=== PATIENT | female | born 1945 | race Caucasian/White ===

== ENCOUNTER 2016-06-22 15:36 | Emergency (ER) | payer MEDICARE ==
[~2016-06-22 15:36] MED LIST: ACULAR10 ML OP; ALBUTEROL HFA; ALBUTEROL17 GM INH; ALPRAZOLAM; ALPRAZOLAM ER1 MG PO; ALPRAZOLAM ODT1 MG PO; ALPRAZOLAM PO; ALPRAZOLAM0.5 MG; AMOXICILLIN875 MG; AMOXICILLIN875 MG PO; ANTIVERT PO; ASTELIN137 MCG INH; ATROVENT HFA12.9 GM INH; ATROVENT NASAL15 ML; AZELASTINE HCL INH; AZELASTINE137 MCG/0.; BACTRIM DS TABL1 TAB PO; BENAZEPRIL; BENAZEPRIL HCL10 M1 PO; BENAZEPRIL HCTZ PO; BENAZEPRIL PO; BENZONATATE PO; BUTRANS1 EAC1 TD; CALAN; CALCIUM + D 6001 TA1 PO; CALCIUM1 TAB.CHEW; CALCIUM500 MG PO; CALTRATE 600 +1 EACH; CALTRATE 600+D PO; CALTRATE PLUS T1 TA1 PO; CALTRATE PO; CARAFATE1 G PO; CIPRO PO; CLEOCIN PO; COMBIVENT INH14.7 GM; COMBIVENT U/D3 M2 INH; CRESTOR10 MG; CRESTOR10 MG PO; DELTASONE20 MG PO; DESYREL50 MG PO; DIAZEPAM PO; DILANTIN; DILANTIN KAPSE100 MG PO; DILANTIN PO; DOC-Q-LACE100 MG PO; ERYTHROMYC3.5 GM OPT OD; FAMOTIDINE; FEROSUL325 ( 651 PO; FERRO-TIME325 MG PO; FISH OIL 1,0001 CA2 PO; FISH OIL 10001000 MG PO; FISH OIL300 MG PO; FLAGYL PO; FLUOXETINE HCL25 GM; FLUOXETINE HCL40 M1 PO; FLUOXETINE HCL40 MG PO; FUROSEMIDE40 MG PO; FUROSEMIDE80 MG PO; GI COCKTAIL PO; GLUCOPHAGE850 MG PO; HCTZ; HCTZ PO; HEMOCYTE324 MG PO; HUMIBID-LA600 MG PO; HYDROCODON-ACE1 EAC5 PO; INDOCIN SR75 MG; INDOMETHACIN25 MG PO; INDOMETHACIN75 MG PO; IRON1 TAB; IRON1 TAB PO; IRON325 ( 65 ) PO; KCL; KCL PO; KLOR-CON 88 ME1 DOB; LASIX; LASIX PO; LASIX20 MG; LASIX80 MG PO; LEVAQUIN PO; LEVAQUIN750 MG PO; LEVSIN; LIDOCAINE; LIPITOR20 MG PO; LOPRESSOR PO; LORATADINE PO; LOTENSIN; LOTENSIN PO; LOTENSIN20 MG PO; LOTENSIN40 MG PO; LOVAZA1 G PO; MAALOX PO; MAALOX SUSPENS355 ML PO; MEDROL DOSEPAK4 MG PO; METFORMIN; METFORMIN HCL500 M1 PO; METFORMIN HYDRO25 GM; METOPROLOL SUCC25 MG PO; METOPROLOL TAR25 MG PO; MIRALAX17 GM; MIRALAX17 GM PO; MOBIC; MOBIC PO; MOBIC15 MG PO; MUCINEX DM1 TAB.SR . PO; NAPROSYN500 MG PO; NEURONTIN PO; NEURONTIN100 MG; NEXIUM PO; NEXIUM10 MG/PACK; NORCO 10-325 TA1 TAB PO; NORCO 10/325 TA1 TAB; OS CAL; OS CAL PO; OS-CAL 500+D CA1 TA1 PO; PERCOCET 10/3251 TAB PO; PERCOCET10 PO; PERCOCET5/325 PO; PHENERGAN PR; POLYTRIM EYE DR10 ML OP; PRAVASTATIN SOD40 MG PO; PREDNISONE PO; PREMARIN; PREMARIN PO; PREMARIN1.25 MG PO; PREVASTATIN; PREVASTATIN PO; PROZAC PO; PROZAC40 MG PO; PYRIDIUM PO; REMERON; REMERON PO; REMERON15 MG PO; TESSALON PERLE100 M1 PO; TESSALON PERLES PO; TOPROL XL PO; TRAVATAN5 ML; TRAZODONE; URECHOLINE25 MG PO; VENTOLIN INHALER INH; VOLTAREN75 MG PO; ZELNORM; ZELNORM PO; ZITHROMAX PO; ZOFRAN PO; ZOLOFT100 MG; [UNRECOGNIZED DRUG - OTHER] PO
== END 2016-06-22 16:14 | disposition home or self-care (01) ==
LOC: SED 15:36
DX: K02.9 Dental caries, unspecified (principal); D64.9 Anemia, unspecified; M19.90 Unspecified osteoarthritis, unspecified site; F41.9 Anxiety disorder, unspecified; Z88.5 Allergy status to narcotic agent; Z88.8 Allergy status to other drugs, medicaments and biological substances; Z79.899 Other long term (current) drug therapy
CPT/HCPCS: 99282

== ENCOUNTER 2016-07-24 13:16 | Emergency (ER) | payer MEDICARE ==
--- NOTE | ~2016-07-24 | CR133 ---
[facility] A Service of [facility] & [facility] RADIOLOGY TEXT RESULTS PATIENT: LARS GONSALES LOCATION: SED : 47 UNIT #: [id number] AGE: [address]: Jonn Marie MD SEX: F ORDER DR: [id number] [place] [id number] E MR#: [id number] Acc #: [id number] NAME: LARS GONSALES : 1945 SEX: F STUDY DATE/TIME: 07/24/2016 13:44 UNIT: SED ROOM: STUDY DESCRIPTION: CR Forearm 2 View Rt Attending Physician: Jonn Marie M.D. Ordering Physician: Jonn Marie M.D. Primary Care Physician: Oc Witt M.D. MEDICAL IMAGING REPORT This report is preliminary unless electronic signature is present. EXAM Right forearm, 2 views, 07/24/2016, 1344 hours. CLINICAL HISTORY 71-year-old man who tripped over a cord today falling on arm. Patient complaining of pain at the ulnar midshaft. COMPARISON None. FINDINGS AP and lateral views demonstrate no fracture or dislocation. There is posterior soft tissue prominence over the midshaft of the ulna which could represent edema or hematoma. No underlying bone abnormality. IMPRESSION 1. No fracture of the radius or ulna. 2. Posterior soft tissue swelling over the midshaft ulna likely representing edema or hematoma. Dictated by... Diana Funk M.D. THIS IS AN ELECTRONICALLY VERIFIED REPORT Diana Funk M.D. at 07/24/2016 5:11 PM GREGORIO/didi TD: 07/24/2016 15:17 JOB #: [id number] MEDICAL IMAGING REPORT Page 1 of 1
== END 2016-07-24 14:12 | disposition home or self-care (01) ==
LOC: SED 13:16
DX: S50.11XA Contusion of right forearm, initial encounter (principal); Z88.5 Allergy status to narcotic agent; Z88.8 Allergy status to other drugs, medicaments and biological substances; W01.0XXA Fall on same level from slipping, tripping and stumbling without subsequent striking against object, initial encounter; Y92.9 Unspecified place or not applicable
CPT/HCPCS: 73090; 99283

== ENCOUNTER 2016-08-16 19:53 | Emergency (ER) | payer MEDICARE ==
--- NOTE | ~2016-08-16 | CT2 ---
[facility] A Service of [facility] RADIOLOGY TEXT RESULTS PATIENT: LARS GONSALES LOCATION: SED : 47 UNIT #: [id number] AGE: [address]: Evaristo Qiu MD SEX: F ORDER DR: [id number] [place] [id number] E MR#: [id number] Acc #: [id number] NAME: LARS GONSALES : 1945 SEX: F STUDY DATE/TIME: 08/17/2016 UNIT: SED ROOM: STUDY DESCRIPTION: CT Abd and Pelv W Cont Attending Physician: Evaristo Qiu M.D. Ordering Physician: Evaristo Qiu M.D. Primary Care Physician: Oc Witt M.D. MEDICAL IMAGING REPORT This report is preliminary unless electronic signature is present. EXAM Abdomen and pelvis CT 08/17 at 01:14 INDICATIONS Generalized abdominal pain for 3 days with nausea, vomiting and diarrhea. TECHNIQUE Axial images were obtained through the abdomen and pelvis following oral and IV contrast administration. Multiplanar reformats were obtained. Comparison made with 04/24/2016. The CT exam was performed with one or more of the following radiation dose reduction techniques: automatic exposure control, adjustment of mA and/or kV according to patient size, and iterative reconstruction. FINDINGS Abdomen: Lung bases are clear. The heart is enlarged. The gallbladder surgically absent. Mild intra and extrahepatic biliary ductal dilatation is stable. Solid organs are normal. No free fluid or adenopathy is seen. There is diffuse colonic diverticulosis. No diverticulitis is identified. The small bowel is normal. Pelvis: There is extensive colonic diverticulosis. No discrete diverticulitis is seen. Distal small bowel remains normal. Urinary bladder is normal. Uterus is surgically absent. The patient may be status post repair of the midline ventral abdominal wall. Correlate with surgical history. 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 IMPRESSION 1. No clearly acute findings in the abdomen and pelvis. 2. Diffuse colonic diverticulosis without evidence of focal diverticulitis. The GI tract is otherwise normal. [facility] A Service of [facility] RADIOLOGY TEXT RESULTS PATIENT: LARS GONSALES LOCATION: [facility] : [birth year] UNIT #: [id number] AGE: [address]: Evaristo Qiu MD SEX: F ORDER DR: 3. Hysterectomy and cholecystectomy. 4. Stable mild intra and extrahepatic biliary ductal dilatation. Dictated by... Miguel Rothman Jr., M.D. THIS IS AN ELECTRONICALLY VERIFIED REPORT Miguel Rothman Jr., M.D. at 08/17/2016 9:24 PM DANE/lior TD: 08/17/2016 10:06 JOB #: [id number] MEDICAL IMAGING REPORT Page 1 of 1
[2016-08-16 22:24] LABS: URINE SOURCE CLEAN CATCH
[2016-08-16 22:25] LABS: BASOPHIL# 0.1 X10e3 (0-0.3); BASOPHIL% 0.9 % (0-2.5); EOSINOPHIL# 0.3 X10e3 (0-0.7); EOSINOPHIL% 4.2 % (0.0-7.0); HEMATOCRIT 31.1 % (35.0-45.0); HEMOGLOBIN 10.3 gm/dL (12.0-16.0); LYMPHOCYTE# 2.4 X10e3 (1.0-3.5); LYMPHOCYTE% 31.1 % (17.0-45.0); MEAN CORPUSCULAR HEMOGLOBIN 27.4 PG (28-34); MEAN PLATELET VOLUME 7.8 FL (6.5-11.5); MONOCYTE# 0.6 X10e3 (0-1.0); MONOCYTE% 7.2 % (3.0-12.0); NEUTROPHIL# 4.4 X10e3 (1.5-7.1); NEUTROPHIL% 56.6 % (40-75); PLATELET COUNT 245 X10e3 (140-420); RED BLOOD COUNT 3.75 X10e (3.90-5.30); RED CELL DISTRIBUTION WIDTH 14.8 % (11.0-15.5); WHITE BLOOD COUNT 7.7 X10e3 (4.0-10.5)
[2016-08-16 22:26] LABS: DIFF IND NO
[2016-08-16 22:27] LABS: URINE APPEARANCE CLEAR; URINE BILIRUBIN NEG (NEG); URINE BLOOD TRACE-INTACT (NEG); URINE COLOR YELLOW; URINE GLUCOSE NEG (NORM); URINE KETONE NEG (NEG); URINE LEUKOCYTE ESTERASE 1+ (NEG); URINE NITRATE NEG (NEG); URINE PROTEIN NEG (NEG); URINE SPECIFIC GRAVITY 1.015 (1.003-1.035); URINE UROBILINOGEN 0.2 MG/DL (NORM)
[2016-08-16 22:34] LABS: CULTURE INDICATED? YES; MICRO INDICATED? YES; URINE BACTERIA NEG (NEG); URINE SQUAMOUS EPITHELIAL CELL OCCAS /[HPF]; URINE TRANSITIONAL EPI CELLS OCCAS /[HPF]
[2016-08-16 22:46] LABS: BILIRUBIN, DIRECT 0.1 mg/dL (0.0-0.2); BILIRUBIN,TOTAL 0.1 mg/dL (0.2-2.0); BUN/CREATININE RATIO 38.75; CALCIUM SERUM 9.1 mg/dL (8.4-10.2); CREATININE SERUM 0.8 mg/dL (0.6-1.4); GLOM FILT RATE Estimated 74.8 mL/min (>60); PROTEIN TOTAL SERUM 7.3 g/dL (6.0-8.3)
== END 2016-08-17 02:23 | disposition home or self-care (01) ==
LOC: SED 19:53
PROVIDERS: Emergency Medicine
DX: R10.30 Lower abdominal pain, unspecified (principal); R19.7 Diarrhea, unspecified; R11.0 Nausea; I11.0 Hypertensive heart disease with heart failure; I50.9 Heart failure, unspecified; I25.10 Atherosclerotic heart disease of native coronary artery without angina pectoris; E11.9 Type 2 diabetes mellitus without complications; E78.5 Hyperlipidemia, unspecified; J44.9 Chronic obstructive pulmonary disease, unspecified; R56.9 Unspecified convulsions; Z90.49 Acquired absence of other specified parts of digestive tract; Z90.710 Acquired absence of both cervix and uterus; Z98.890 Other specified postprocedural states
CPT/HCPCS: 36415; 74177; 80048; 80076; 81003; 83690; 85025; 87086; 96361; 96374; 96375; 99284; J1170; J1200; J2405; Q9967

== ENCOUNTER 2016-08-24 20:09 | Emergency (ER) | payer MEDICARE ==
--- NOTE | ~2016-08-24 | CR172 ---
[facility]. [facility] A Service of [facility] RADIOLOGY TEXT RESULTS PATIENT: LARS GONSALES LOCATION: SED : 47 UNIT #: [id number] AGE: [address]: Mack Sauceda MD SEX: F ORDER DR: [id number] [place] [id number] E MR#: [id number] Acc #: [id number] NAME: LARS GONSALES : 1945 SEX: F STUDY DATE/TIME: 08/24/2016 20:26 UNIT: SED ROOM: STUDY DESCRIPTION: CR Knee 3 Views Lt Attending Physician: Mack Sauceda M.D. Ordering Physician: Mack Sauceda M.D. Primary Care Physician: Oc Witt M.D. MEDICAL IMAGING REPORT This report is preliminary unless electronic signature is present. EXAM Left knee, 08/24/2016 HISTORY 71-year-old female with left knee pain status post fall yesterday. COMPARISON None. FINDINGS 3 views of the left knee demonstrate no acute fracture or dislocation. No significant joint effusion. Mild degenerative changes of the patellofemoral joint. Mild medial compartment joint space narrowing and marginal osteophyte formation at the medial joint line. Soft tissues are unremarkable. IMPRESSION 1. No acute fracture or dislocation. 2. Mild patellofemoral and medial compartment arthrosis. Dictated by... Damion Rodrigues M.D. THIS IS AN ELECTRONICALLY VERIFIED REPORT Damion Rodrigues M.D. at 08/25/2016 10:25 AM TON/rip TD: 08/24/2016 21:36 JOB #: [id number] [facility] A Service [facility] RADIOLOGY TEXT RESULTS PATIENT: LARS GONSALES LOCATION: SED : 47 UNIT #: [id number] AGE: [address]: Mack Sauceda MD SEX: F ORDER DR: MEDICAL IMAGING REPORT Page 1 of 1
== END 2016-08-24 21:02 | disposition home or self-care (01) ==
LOC: SED 20:09
DX: S00.83XA Contusion of other part of head, initial encounter (principal); S80.02XA Contusion of left knee, initial encounter; S60.511A Abrasion of right hand, initial encounter; W01.0XXA Fall on same level from slipping, tripping and stumbling without subsequent striking against object, initial encounter; Y92.009 Unspecified place in unspecified non-institutional (private) residence as the place of occurrence of the external cause
CPT/HCPCS: 29530; 73562; 99283

== ENCOUNTER 2016-09-13 21:47 | Emergency (ER) | payer MEDICARE ==
[~2016-09-13] VITALS: Ht 154.9 cm; Wt 92.1 kg
--- NOTE | ~2016-09-13 | US85 ---
[facility] A Service of [facility] RADIOLOGY TEXT RESULTS PATIENT: LARS GONSALES LOCATION: SED : 47 UNIT #: [id number] AGE: [address]: FLETCHER FLOOD SEX: F ORDER DR: [id number] [place] [id number] E MR#: [id number] Acc #: [id number] NAME: LARS GONSALES : 1945 SEX: F STUDY DATE/TIME: 09/13/2016 23:51 UNIT: SED ROOM: STUDY DESCRIPTION: [facility] Attending Physician: Fletcher Flood A.P.R.N. Ordering Physician: Peter Flood Primary Care Physician: Oc Witt M.D. MEDICAL IMAGING REPORT This report is preliminary unless electronic signature is present. EXAM Ultrasound of the lower extremity veins. HISTORY Left leg swelling and edema since a fall 3 weeks ago. PROCEDURE Miner-scale color Doppler spectral imaging deep veins of the left leg. COMPARISON STUDIES None. FINDINGS Deep veins in the left leg compress normally, show normal color Doppler and spectral characteristics. IMPRESSION No evidence for DVT in the left leg Dictated by... Cricket Cohen M.D. THIS IS AN ELECTRONICALLY VERIFIED REPORT Cricket Cohen M.D. at 09/14/2016 10:24 PM LEANN/minerva TD: 09/14/2016 07:18 JOB #: [id number] MEDICAL IMAGING REPORT Page 1 of 1
== END 2016-09-14 00:55 | disposition home or self-care (01) ==
LOC: SED 21:47
DX: S80.212A Abrasion, left knee, initial encounter (principal); I10 Essential (primary) hypertension; E11.9 Type 2 diabetes mellitus without complications; Z88.5 Allergy status to narcotic agent; Z88.8 Allergy status to other drugs, medicaments and biological substances; W19.XXXA Unspecified fall, initial encounter; Y92.9 Unspecified place or not applicable
CPT/HCPCS: 29530; 93971; 99283